=== PATIENT | female | born 1985 | race Caucasian/White ===

== ENCOUNTER 2016-10-05 23:34 | Emergency (ER) | payer OTHER ==
[~2016-10-05] VITALS: Ht 165.1 cm; Wt 67.3 kg
[2016-10-05] MEDS ORDERED: PRENTAB52 PO (23:49)
[2016-10-06] MEDS ORDERED: NORCO 5/325MG TABLET (BULK FOR ED) PO ONE (00:30)
[2016-10-06 00:55] VITALS: BP 106/64
[2017-02-04] MEDS ORDERED: CYCL10TA PO (15:40)
== END 2016-10-06 00:57 | disposition admitted as inpatient to this hospital (09) ==
LOC: M ED 23:34
DX: Z04.1 Encounter for examination and observation following transport accident (principal); Z3A.28 28 weeks gestation of pregnancy; V43.62XA Car passenger injured in collision with other type car in traffic accident, initial encounter; Y92.410 Unspecified street and highway as the place of occurrence of the external cause

== ENCOUNTER 2016-10-06 01:04 | Outpatient (CLI) | payer OTHER, SELFPAY ==
[~2016-10-06] VITALS: Ht 163.8 cm; Wt 66.0 kg
[~2016-10-06 01:04] MED LIST: PRENTAB52 PO
[2016-10-06 01:14] VITALS: BP 111/57
[2017-02-04] MEDS ORDERED: CYCL10TA PO (15:40)
== END 2016-10-06 02:15 | disposition home or self-care (01) ==
LOC: M LDO 01:04
PROVIDERS: ATTEND Obstetrics & Gynecology
DX: O99.89 Other specified diseases and conditions complicating pregnancy, childbirth and the puerperium (principal); Z3A.28 28 weeks gestation of pregnancy; M54.2 Cervicalgia; M54.89 Other dorsalgia; V49.50XA Passenger injured in collision with unspecified motor vehicles in traffic accident, initial encounter; X58.XXXA Exposure to other specified factors, initial encounter; Y93.9 Activity, unspecified; Y92.9 Unspecified place or not applicable; Y99.8 Other external cause status

== ENCOUNTER → 2016-11-10 | Outpatient (CLI) | payer OTHER ==
[~2016-11-10] MED LIST changes: +ACET50TA PO; +CYCL10TA PO; +MOTR200T44 PO
== END ==
LOC: M LAB 07:15
PROVIDERS: ATTEND Specialist
DX: Z36 Encounter for antenatal screening of mother (principal); Z34.83 Encounter for supervision of other normal pregnancy, third trimester

== ENCOUNTER → 2016-11-16 | Outpatient (CLI) | payer OTHER ==
--- NOTE | 2016-11-16 16:09 | REP ---
OB ULTRASOUND: Real-time sonographic evaluation of the gravid uterus is performed utilizing transabdominal and endovaginal technique. There is a single living intrauterine gestation. The reported estimated gestational age is 34 weeks 1 days with EDC 12/27/2016. Today's measurements indicate appropriate growth. BPD 85 mm = 34 weeks 2 days, at the 52nd percentile. HC 313 mm = 35 weeks 0 days, at the 64th percentile. AC 323 mm = 36 weeks 2 day, at the 82nd percentile. Femur length 66 mm = 34 weeks 0 days, at the 48th percentile. HC/AC ratio 0.97 within normal range. Estimated weight 2645 grams, 69th percentile. Cervix is closed measures 3 cm in length. heart rate 136 beats per minute. Amniotic fluid within normal limits. DORI 14.8 within normal range of 8.1 to 24.8. SD ratio 2.65 within normal range. RI 0.62 within normal range. Visualized anatomy today includes the lateral ventricles, upper lip, stomach, three-vessel cord, kidneys, bladder and spine, which are all grossly unremarkable. position is vertex. Placenta is anterior and grade 2 with no previa or abruption. Cervix is measured transvaginal measuring approximately 2.8 to 3.0 cm, and with Valsalva maneuver 2.5 cm. IMPRESSION: Appropriate growth. Normal DORI. Cervix measures 2.5 cm on transvaginal images, with Valsalva maneuver. Signed by Mane Montero MD 11/17/2016 12:32 P
== END ==
LOC: M RAD 13:40
PROVIDERS: ATTEND Advanced Practice Midwife
DX: O24.410 Gestational diabetes mellitus in pregnancy, diet controlled (principal); Z36 Encounter for antenatal screening of mother; Z3A.34 34 weeks gestation of pregnancy; O26.843 Uterine size-date discrepancy, third trimester

== ENCOUNTER → 2016-11-27 | Outpatient (REF) | payer OTHER | LOC: M LAB REF 13:49 | PROVIDERS: ATTEND Advanced Practice Midwife | DX: Z34.83 Encounter for supervision of other normal pregnancy, third trimester (principal); Z36 Encounter for antenatal screening of mother; Z3A.00 Weeks of gestation of pregnancy not specified ==

== ENCOUNTER → 2016-12-02 | Outpatient (REF) | payer OTHER | LOC: M LAB REF 11:18 | PROVIDERS: ATTEND Obstetrics & Gynecology | DX: Z34.83 Encounter for supervision of other normal pregnancy, third trimester (principal); Z36 Encounter for antenatal screening of mother; Z3A.00 Weeks of gestation of pregnancy not specified ==

== ENCOUNTER 2016-12-06 13:38 | Emergency (ER) | payer OTHER ==
[~2016-12-06] VITALS: Ht 162.6 cm; Wt 66.4 kg
[~2016-12-06 13:38] MED LIST changes: -ACET50TA PO; -CYCL10TA PO; -MOTR200T44 PO
[2016-12-06 14:56] VITALS: BP 112/58
[2017-02-04] MEDS ORDERED: CYCL10TA PO (15:40)
== END 2016-12-06 14:59 | disposition home or self-care (01) ==
LOC: M ED 13:38
DX: O9A.219 Injury, poisoning and certain other consequences of external causes complicating pregnancy, unspecified trimester (principal); S90.02XA Contusion of left ankle, initial encounter; W22.8XXA Striking against or struck by other objects, initial encounter; Y92.019 Unspecified place in single-family (private) house as the place of occurrence of the external cause; Y93.01 Activity, walking, marching and hiking; Y99.8 Other external cause status; Z3A.00 Weeks of gestation of pregnancy not specified

== ENCOUNTER 2016-12-23 12:36 | Inpatient (IN) | payer OTHER ==
[2016-12-23] VITALS (20 sets, daily range): BP systolic 91–138; BP diastolic 58–79
[~2016-12-23] VITALS: Ht 163.8 cm; Wt 66.6 kg
[2016-12-23] MEDS ORDERED: LR 1,000 ML IV SCH (13:24)
[2016-12-23] MEDS ORDERED: OXYTOCIN DRIP 30 UNITS in APPROPRIATE DILUENT 1 EA IV SCH (13:30)
[2016-12-23] MEDS ORDERED: ACET50TA PO (13:58)
--- NOTE | 2016-12-23 14:47 | HPE ---
DATE OF ADMISSION: 12/23/2016 30-year-old, 6, para 0-0-5-0 female at 39 and 3/7 weeks gestation by last menstrual period consistent with 8 week ultrasound, estimated date of confinement (EDC) 12/27/2016, presents with spontaneous loss of fluid per vagina on the morning of admission at 1:30 a.m. Contractions began at 3:00 a.m. but still remained approximately 30 minutes apart. They were not strong. She continued to leak fluid. Denied vaginal bleeding. COURSE: The patient's initial care was in [place]. She transferred to [facility] at 31 weeks gestation. On 10/29/2016, her blood pressure was 108/64. significant for A1 gestational diabetes. She also had abnormal quad screen but a normal [place] test. OBSTETRICAL HISTORY: termination times three, spontaneous miscarriage times two. SURGERY: Dilatation and curettage on multiple occasions. Left foot surgery. Ganglion cyst surgery. ALLERGIES: None. SOCIAL HISTORY: The father of the baby is involved. The patient smokes rare cigarettes, but smokes half of a pack a day when she is not . She denies alcohol or drug use. FAMILY HISTORY: Noncontributory. PHYSICAL EXAMINATION : Blood pressure 122/74, pulse 84. She is in no apparent distress. Head and neck exam is normal. LUNGS: Clear. HEART: Regular rate and rhythm. ABDOMEN: Nontender. Gravid. heart tones Category 1. STERILE VAGINAL EXAM: Grossly ruptured, clear fluid, 1 cm, 80% effaced, -2 station, vertex. Contractions irregular. EXTREMITIES: Nontender. LABORATORY DATA: O negative. Rubella nonimmune, RPR nonreactive. Hepatitis B and C negative. HIV negative. Group B streptococcus (GBS) negative on 11/27/2016. ASSESSMENT AND PLAN: 30-year-old, 6, para 0-0-5-0 female at 39 and 3/7 weeks gestation with spontaneous labor with early contractions, no signs of labor. THe patient was admitted on 12/23/2016 and may require Pitocin augmentation.
[2016-12-23] MEDS ORDERED: FENTANYL 2MCG/ML ROPIVACAINE 0.2% IN 0.9% NACL 200ML IVBAG As Ordered ONE (17:22)
[2016-12-23 17:30] LABS: MEAN CORPUSCULAR HEMOGLOBIN 34.1 pg (27.0-33.0); MEAN CORPUSCULAR HGB CONC 35.6 g/dl (32.0-36.5); MEAN CORPUSCULAR VOLUME 95.8 fl (80.0-96.0); RED CELL DISTRIBUTION WIDTH 12.5 % (11.5-14.5); WHITE BLOOD COUNT 13.5 K/mm3 (4.0-10.0)
[2016-12-23] MEDS ORDERED: ePHEDrine SULFATE 25 MG/5 ML(5MG/ML) SYRINGE IV PRN (18:45)
[2016-12-23] MEDS ORDERED: LACTATED RINGER'S 1000 ML IV PRN (18:45)
[2016-12-23] MEDS ORDERED: diphenhydrAMINE INJ 50MG/ML VIAL (J1200) IV PRN (18:45)
[2016-12-23] MEDS ORDERED: ONDANSETRON 4MG/2ML VIAL (J2405) IV PRN (18:45)
[2016-12-23] MEDS ORDERED: NALOXONE INJ 0.4 MG/1 ML VIAL (J2310) IV PRN (18:45)
[2016-12-23] MEDS ORDERED: REFRIGERATOR IV KEYS XX PRN (18:45)
[2016-12-23] MEDS ORDERED: EPIDURAL/PCA KEYS XX PRN (18:45)
[2016-12-23] MEDS ORDERED: EPIDURAL COMMENT XX SCH (18:45)
[2016-12-23] MEDS ORDERED: FENTANYL/ROPIVACAINE/NACL BAG 200 ML EPIDURAL SCH (18:45)
[2016-12-23] MEDS ORDERED: DOCUSATE SODIUM 100 MG CAP PO PRN (23:45)
[2016-12-23] MEDS ORDERED: METHYLERGONOVINE MALEATE 0.2 MG TAB PO PRN (23:45)
[2016-12-23] MEDS ORDERED: OXYTOCIN DRIP 30 UNITS in APPROPRIATE DILUENT 1 EA IV ONE (23:45)
[2016-12-23] MEDS ORDERED: ACETAMINOPHEN 500 MG TAB PO PRN (23:45)
[2016-12-23] MEDS ORDERED: IBUPROFEN 800 MG TAB PO PRN (23:45)
[2016-12-23] MEDS ORDERED: RHOGAM 300 MCG (1500 IU) INJ (J2790) IM SCH (23:45)
[2016-12-23] MEDS ORDERED: LIDOCAINE 1% MDV INJ 50 ML VIAL INFIL ONE (23:45)
[2016-12-23] MEDS ORDERED: MEASLES,MUMPS,RUBELLA VACCINE INJ (MMR-II) (90707) SC SCH (23:45)
[2016-12-23] MEDS ORDERED: DIBUCAINE 1% OINTMENT 30GM TOP PRN (23:45)
[2016-12-24 01:26] VITALS: BP 99/57
[2016-12-24] MEDS: PRENATAL VITAMINS CHEWABLE TABLET PO SCH (08:59)
--- NOTE | 2016-12-24 09:07 | DN ---
DATE: 12/23/2016 PREDELIVERY DIAGNOSIS: 39 weeks , labor. POSTDELIVERY DIAGNOSIS: Delivered. PROCEDURE: Spontaneous vaginal delivery. COUNCILMAN: Dr. Al Craven ANESTHESIA: Epidural. ESTIMATED BLOOD LOSS: 300 mL. FINDINGS: 7 pound 10 ounce female infant, scores 8 and 9. DELIVERY SUMMARY: After a 1-1/2 hour second stage, the patient had spontaneous delivery of a 7 pound 10 ounce female under epidural anesthesia. Tight nuchal cord times one was reduced manually. Shoulders delivered spontaneously with ease. The cried spontaneously and was handed to the mother. Left nuchal arm was present at the time of delivery. The cord was doubly clamped and cut. The placenta delivered spontaneously and appeared to be intact. The patient received IV Pitocin immediately after delivery of the placenta. Second degree perineal laceration was repaired with #2-0 chromic under local anesthesia in the usual fashion. Sponge and needle counts were correct.
[2016-12-24 17:56] VITALS: BP 114/57
[2016-12-24] MEDS ORDERED: LIDOCAINE 1% MDV INJ 50 ML VIAL SC ONE (19:45)
[2016-12-25 06:26] VITALS: BP 100/58
[2016-12-25] MEDS: PRENATAL VITAMINS CHEWABLE TABLET PO SCH (09:00)
[2016-12-25] MEDS ORDERED: INFLUENZA QUADRIVALENT PF VACCINE 0.5ML SYRINGE (90686) IM ONE (09:00)
[2016-12-25] MEDS ORDERED: ADACEL/BOOSTRIX VACCINE (DIPHTH/PERTUSS/ACELL/TETANUS)0.5ML SYR (90715) IM ONE (09:00)
[2016-12-25] MEDS ORDERED: MOTR200T44 PO (09:02)
[2017-02-04] MEDS ORDERED: CYCL10TA PO (15:40)
== END 2016-12-25 14:55 | disposition home or self-care (01) | DRG 560 ==
LOC: M LDI 12:36 → M OBS 12-24 01:05
PROVIDERS: ADMIT Specialist; ATTEND Specialist
PROC: 10E0XZZ Delivery of Products of Conception, External Approach (ICD-10-PCS; principal; 2016-12-23)
PROC: 0KQM0ZZ Repair Perineum Muscle, Open Approach (ICD-10-PCS; 2016-12-23)
PROC: 30233S1 Transfusion of Nonautologous Globulin into Peripheral Vein, Percutaneous Approach (ICD-10-PCS; 2016-12-24)
DX: O24.429 Gestational diabetes mellitus in childbirth, unspecified control (principal); F17.210 Nicotine dependence, cigarettes, uncomplicated; Z37.0 Single live birth; Z3A.39 39 weeks gestation of pregnancy; O69.2XX0 Labor and delivery complicated by other cord entanglement, with compression, not applicable or unspecified; O70.1 Second degree perineal laceration during delivery; O99.334 Smoking (tobacco) complicating childbirth

== ENCOUNTER 2016-12-30 09:48 | Emergency (ER) | payer OTHER ==
[~2016-12-30] VITALS: Ht 162.6 cm; Wt 59.0 kg
[~2016-12-30 09:48] MED LIST changes: +ACET50TA PO; +MOTR200T44 PO
--- NOTE | 2016-12-30 12:05 | REP ---
Right upper extremity duplex Doppler venous ultrasound. Real time compression and duplex Doppler evaluation of the right upper extremity deep venous system is performed. The the right subclavian, jugular, axillary, brachial, basilic and cephalic veins are fully compressible where accessible with transducer pressure, and demonstrate no intraluminal thrombus and normal venous waveforms. There is no evidence of deep venous thrombosis. Impression: No evidence of deep venous thrombosis of the right upper extremity deep vein system. Signed by Mane Montero MD 12/30/2016 11:57 A
[2016-12-30 12:27] VITALS: BP 113/60
[2017-02-04] MEDS ORDERED: CYCL10TA PO (15:40)
== END 2016-12-30 12:39 | disposition home or self-care (01) ==
LOC: M ED 09:48
DX: R20.2 Paresthesia of skin (principal); F17.210 Nicotine dependence, cigarettes, uncomplicated

== ENCOUNTER → 2017-01-26 | Outpatient (CLI) | payer OTHER ==
[~2017-01-26] MED LIST changes: +CYCL10TA PO
== END ==
LOC: M LAB 08:09
PROVIDERS: ATTEND Advanced Practice Midwife
DX: O24.410 Gestational diabetes mellitus in pregnancy, diet controlled (principal)

== ENCOUNTER 2017-04-04 03:11 | Emergency (ER) | payer OTHER | END 2017-04-04 05:11 | disposition home or self-care (01) | LOC: M ED 03:11 | DX: J70.5 Respiratory conditions due to smoke inhalation (principal); F17.210 Nicotine dependence, cigarettes, uncomplicated | CPT/HCPCS: 99283 ==

== ENCOUNTER → 2017-05-03 | Outpatient (CLI) | payer OTHER | LOC: M RAD 09:03 | DX: M54.6 Pain in thoracic spine (principal) | CPT/HCPCS: 72146 ==